=== PATIENT | male | born 1955 | race Two or more races ===

== ENCOUNTER 2020-07-08 11:27 | Emergency (ER) | payer OTHER, SELFPAY ==
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
[2020-07-08 11:39] VITALS: BP 121/82; PULSE 102; RESP 18; TEMP 37.1; O2SAT 99; BMI 25.9
--- NOTE | 2020-07-08 12:14 | PC.NURSE ---
+REDNESS/SWELLING LEFT HAND, HAND ELEVATED, AWAITING EXAM
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
--- NOTE | 2020-07-08 14:35 | PC.NURSE ---
TADEO EM CONSULTED WITH HAND SURGEON, US TO BE PERFORMED
[2020-07-08 15:05] VITALS: BP 118/73; PULSE 95; RESP 16; TEMP 36.2; O2SAT 99
--- NOTE | 2020-07-08 15:05 | PC.NURSE ---
bedside us in progress
--- NOTE | 2020-07-08 17:26 | PC.NURSE ---
PT WOUND CLEANED AND DRAINED BY DR. LEON. COMPRESSION DRESSING APPLIED.
== END 2020-07-08 17:36 | disposition home or self-care (01) ==
PROVIDERS: Emergency Provider Emergency Medicine Emergency Medical Services; PCP Internal Medicine
DX: L76.32 Postprocedural hematoma of skin and subcutaneous tissue following other procedure (principal); R00.0 Tachycardia, unspecified; E11.9 Type 2 diabetes mellitus without complications; I10 Essential (primary) hypertension; E78.5 Hyperlipidemia, unspecified
CPT/HCPCS: 10140; 76882; 99284

== ENCOUNTER 2020-07-14 08:07 | Outpatient (REF) | payer OTHER, SELFPAY ==
--- NOTE | ~2020-07-14 | US_ITS ---
EXAMINATION: US ABDOMEN COMPLETE CLINICAL INFORMATION: Elevated LFTs. COMPARISON: None TECHNIQUE: Real-time imaging of the abdominal viscera. FINDINGS: PANCREAS: The pancreas is obscured by overlying gas. ABDOMINAL AORTA: There is atherosclerotic plaque seen in the abdominal aorta without aneurysmal dilatation. INFERIOR VENA CAVA: Visualized portions are normal. LIVER: The liver is coarse and echogenic The liver is normal in size. The liver contour is normal. No focal hepatic lesion. There is no intrahepatic biliary duct dilatation seen. GALLBLADDER: Normal. The gallbladder is physiologically distended without evidence of stones, sludge, polyps, wall thickening or pericholecystic fluid. COMMON BILE DUCT: Normal in caliber measuring 0.4 cm in diameter. RIGHT KIDNEY: Normal. No hydronephrosis. No renal calculi or focal parenchymal lesions. The kidney measures 11.4 cm in maximum dimension. LEFT KIDNEY: Normal. No hydronephrosis. No renal calculi or focal parenchymal lesions. The kidney measures 11.9 cm in maximum dimension. SPLEEN: Normal. The spleen measures 10.5 cm in maximum dimension. FREE FLUID: None. US/US abdomen complete IMPRESSION: Coarse echogenic liver without any focal lesion. Rest of the abdominal ultrasound is unremarkable.
== END 2020-07-14 08:08 | disposition home or self-care (01) ==
LOC: HO.US 08:07
PROVIDERS: PCP Internal Medicine; Visit Provider Internal Medicine
DX: R74.8 Abnormal levels of other serum enzymes (principal)
CPT/HCPCS: 76700

== ENCOUNTER → 2020-08-01 08:17 | Outpatient (BNVA) | payer OTHER, SELFPAY | PROVIDERS: PCP Internal Medicine; Visit Provider Internal Medicine Gastroenterology | DX: R79.89 Other specified abnormal findings of blood chemistry (principal); R14.0 Abdominal distension (gaseous); D50.9 Iron deficiency anemia, unspecified; K21.9 Gastro-esophageal reflux disease without esophagitis; Z86.010 Personal history of colon polyps | CPT/HCPCS: 99212 ==

== ENCOUNTER 2020-08-02 10:48 | Outpatient (REF) | payer OTHER, SELFPAY ==
[2020-08-02 12:17] LABS: MANUAL DIFF FLAG NO
[2020-08-02 12:26] LABS: Basophils Absolute Auto 0.1 X10*3/uL (0.0-0.2); Basophils Percent Auto 0.7 % (0-2); Eosinophils Absolute Auto 0.2 X10*3/uL (0.0-0.4); Eosinophils Percent Auto 2.1 % (0-4); Hematocrit 34.9 % (42-52); Imm Gran Abs Auto 0.02 X10*3/uL (0.00-0.03); Imm Gran Pct Auto 0.3 % (0.0-0.4); Mean Corpuscular HGB Conc 31.5 g/dl (31.0-36.0); Mean Corpuscular Hemoglobin 27.2 pg (27.0-33.0); Mean Corpuscular Volume 86.4 fL (80-98); Mean Platelet Volume 10.8 fL (9.4-12.4); Monocytes Absolute Auto 0.6 X10*3/uL (0.1-1.2); Monocytes Percent Auto 8.2 % (2-11); Neutrophils Absolute Auto 4.8 X10*3/uL (2.0-8.3); Neutrophils Percent Auto 62.7 % (45-73); Platelet Count 323 X10*3/uL (160-400); Red Blood Count 4.04 X10*6/uL (4.60-5.80); Red Cell Distribution Width 13.2 % (11.0-16.0); White Blood Count 7.6 X10*3/uL (4.8-10.8)
[2020-08-02 12:52] LABS: Alanine Aminotransferase 23 U/L (0-40); Albumin Level 4.5 g/dL (3.5-5.0); Alkaline Phosphatase 295 U/L (39-117); Aspartate Amino Transferase 20 U/L (5-37); Bilirubin Direct 0.2 mg/dL (0.0-0.5); Bilirubin Total 0.4 mg/dL (0.0-1.0); Estimated Glomerular Filt Rate 59
[2020-08-02 13:14] LABS: Ferritin 152 ng/mL (20-250); Vitamin D 25-OH Total 34.9 ng/mL (>30)
[2020-08-03 09:02] LABS: Hepatitis A Antibody IgG REACTIVE (Nonreactive); ~Hepatitis A Antibody IgG 9.49 S/CO (0.00-0.99)
[2020-08-03 09:19] LABS: HBS Num1 0.96 mIU/mL (0-7.99); HBsAGNum1 0.33 S/CO (0.00-0.99); Hepatitis B Surface Antigen Negative (Negative); ~Hepatitis B Surface Antibody NONREACTIVE (Nonreactive)
[2020-08-03 09:50] LABS: HBc Num1 0.08 S/CO (0.00-0.79); Hepatitis B Core Antibody Nonreactive (Nonreactive); ~HepC Num1 0.11 S/CO (0.00-0.79); ~Hepatitis C Antibody Nonreactive (Nonreactive)
== END 2020-08-02 10:49 | disposition home or self-care (01) ==
LOC: HO.LAB 10:48
PROVIDERS: PCP Internal Medicine; Visit Provider Internal Medicine Gastroenterology
DX: D50.9 Iron deficiency anemia, unspecified (principal); K21.9 Gastro-esophageal reflux disease without esophagitis; R94.5 Abnormal results of liver function studies
CPT/HCPCS: 36415; 80076; 82306; 82565; 82728; 85025; 86704; 86706; 86708; 86803; 87340

== ENCOUNTER 2020-08-02 12:12 | Outpatient (REF) | payer OTHER, SELFPAY ==
[2020-08-02 12:19] LABS: OBS1 NEGATIVE (NEGATIVE); OBS2 NEGATIVE (NEGATIVE); OBS3 NEGATIVE (NEGATIVE)
[2020-08-02 12:20] LABS: OBS Int Ctl Valid YES
== END 2020-08-02 12:13 | disposition home or self-care (01) ==
LOC: HO.LNP 12:12
PROVIDERS: Visit Provider Internal Medicine Gastroenterology
DX: D50.9 Iron deficiency anemia, unspecified (principal); R94.5 Abnormal results of liver function studies
CPT/HCPCS: 82270

== ENCOUNTER → 2020-09-12 08:26 | Outpatient (BNVA) | payer OTHER, SELFPAY | PROVIDERS: PCP Internal Medicine; Referring Provider Internal Medicine; Visit Provider Internal Medicine Gastroenterology | DX: K21.9 Gastro-esophageal reflux disease without esophagitis (principal); R14.0 Abdominal distension (gaseous); D50.9 Iron deficiency anemia, unspecified; R10.12 Left upper quadrant pain; Z86.010 Personal history of colon polyps | CPT/HCPCS: 99212 ==

== ENCOUNTER 2020-09-14 06:09 | Outpatient (REF) | payer MEDICARE, SELFPAY ==
[2020-09-14 07:09] LABS: Prothrombin Time 12.4 SEC (10.8-13.0)
[2020-09-14 07:29] LABS: Blood Urea Nitrogen 21 mg/dL (9-16); Estimated Glomerular Filt Rate > 60
[2020-09-15 18:37] LABS: Prot Elec - Albumin 4.1 g/dL (3.8-4.8); Prot Elec - Alpha1 0.3 g/dL (0.2-0.3); Prot Elec - Alpha2 1.1 g/dL (0.5-0.9); Prot Elec - Beta 1 0.5 g/dL (0.4-0.6); Prot Elec - Beta 2 0.5 g/dL (0.2-0.5); Prot Elec - Gamma 1.1 g/dL (0.8-1.7); Prot Elec - Total Protein 7.6 g/dL (6.1-8.1)
[2020-09-16 14:02] LABS: ANA Pattern 2 Nuclear, Nucleolar; Anti Nuclear Antibody Pattern Nuclear, Homogeneous; Anti Nuclear Antibody Screen POSITIVE (NEGATIVE)
[2020-09-17 14:17] LABS: Myeloperoxidase Antibody <1.0 AI; Proteinase 3 PR3 Antibodies <1.0 AI
[2020-09-18 12:37] LABS: Smooth Muscle Antibody <20 U (<20)
[2020-09-18 14:37] LABS: Alk.Phos Iso. Macrohepatic 0 % (<=0); Alk.Phos Isoenzymes Bone 21 % (28-66); Alk.Phos Isoenzymes Intest 0 % (1-24); Alk.Phos Isoenzymes Liver 79 % (25-69); Alk.Phos Isoenzymes Placental 0 % (<=0); Alk.Phos Isoenzymes Total 87 U/L (35-144)
[2020-09-20 12:41] LABS: Mitochondrial Antibodies NEGATIVE (NEGATIVE)
== END 2020-09-14 06:10 | disposition home or self-care (01) ==
LOC: HO.LAB 06:09
PROVIDERS: PCP Internal Medicine; Visit Provider Internal Medicine Gastroenterology
DX: R79.89 Other specified abnormal findings of blood chemistry (principal)
CPT/HCPCS: 36415; 82565; 84080; 84155; 84165; 84520; 85610; 86021; 86038; 86039; 86255; 86256

== ENCOUNTER 2020-10-10 07:31 | Outpatient (REF) | payer MEDICARE, SELFPAY ==
--- NOTE | ~2020-10-10 | CT_ITS ---
EXAMINATION: CT ABDOMEN AND PELVIS WITH CONTRAST CLINICAL INFORMATION: Abnormal blood chemistry. COMPARISON: Ultrasound abdomen 07/14/2020. TECHNIQUE: Multidetector volumetric images were obtained from the superior aspect of the liver through the pubic symphysis following administration 85 mL of Omnipaque 350 intravenous contrast. Sagittal and coronal reformatted images were obtained on the technologist's workstation. Oral contrast: No This CT examination was performed using dose optimization techniques as appropriate, variously including the following: *Automated exposure control *Adjustment of mA and/or kV according to patient size (this includes techniques or standardized protocols for targeted exams where dose is matched to indication/reason for exam; i.e. extremities or head) *Use of iterative reconstruction technique DLP: 327 mGy-cm FINDINGS: LUNG BASES: The visualized lung bases are unremarkable. LIVER, GALLBLADDER, AND BILIARY TREE: The liver is normal in size, shape, and attenuation. No focal hepatic lesion or biliary ductal dilatation is present. The gallbladder is contracted and appears unremarkable. PANCREAS: Unremarkable. SPLEEN: Unremarkable. ADRENAL GLANDS: Unremarkable. KIDNEYS AND URETERS: The kidneys are normal in size, shape, and attenuation. No hydronephrosis, hydroureter, or calculi seen. No perinephric stranding. BLADDER: Unremarkable. GASTROINTESTINAL TRACT: There is scattered oral contrast seen throughout the entire colon and small bowel loops without distention. There is scattered stool and diverticuli throughout the colon without any evidence of diverticulitis. Appendix is normal caliber. ABDOMINAL WALL: A small umbilical hernia containing fat is noted. LYMPH NODES: Normal. VASCULAR: Unremarkable. PELVIC VISCERA: The prostate is normal size. There is no free fluid. No abnormal pelvic or inguinal lymph nodes seen. No hernia seen. OSSEOUS STRUCTURES: No lytic or sclerotic process seen. CT/CT abdomen pelvis w con IMPRESSION: Diffuse colonic diverticulosis without diverticulitis. Visualized liver, pancreas and a contracted gallbladder is unremarkable.
[2020-10-10] MEDS: iohexoL 350 MG/ML 100 ML INFUS..BTL IV (10:43)
== END 2020-10-10 07:32 | disposition home or self-care (01) ==
LOC: HO.CT 07:31
PROVIDERS: PCP Internal Medicine; Visit Provider Internal Medicine Gastroenterology
DX: R10.12 Left upper quadrant pain (principal); R79.89 Other specified abnormal findings of blood chemistry
CPT/HCPCS: 74177; Q9967

== ENCOUNTER → 2020-11-07 07:37 | Outpatient (BNVA) | payer MEDICARE, SELFPAY | PROVIDERS: PCP Internal Medicine; Visit Provider Internal Medicine Gastroenterology | DX: K21.9 Gastro-esophageal reflux disease without esophagitis (principal); D50.9 Iron deficiency anemia, unspecified; R10.12 Left upper quadrant pain; R14.0 Abdominal distension (gaseous); R79.89 Other specified abnormal findings of blood chemistry; Z86.010 Personal history of colon polyps | CPT/HCPCS: 99212 ==

== ENCOUNTER 2021-01-02 06:04 | Outpatient (REF) | payer MEDICARE, SELFPAY ==
[2021-01-02 07:37] LABS: MANUAL DIFF FLAG NO
[2021-01-02 07:47] LABS: Basophils Absolute Auto 0.1 X10*3/uL (0.0-0.2); Basophils Percent Auto 0.8 % (0-2); Eosinophils Absolute Auto 0.2 X10*3/uL (0.0-0.4); Eosinophils Percent Auto 1.7 % (0-4); Hematocrit 35.9 % (42-52); Hemoglobin 11.6 g/dl (14.0-18.0); Imm Gran Abs Auto 0.03 X10*3/uL (0.00-0.03); Imm Gran Pct Auto 0.3 % (0.0-0.4); Lymphocytes Absolute Auto 2.3 X10*3/uL (1.2-4.9); Lymphocytes Percent Auto 26.1 % (20-40); Mean Corpuscular HGB Conc 32.3 g/dl (31.0-36.0); Mean Corpuscular Hemoglobin 27.4 pg (27.0-33.0); Mean Corpuscular Volume 84.9 fL (80-98); Mean Platelet Volume 10.6 fL (9.4-12.4); Monocytes Absolute Auto 0.7 X10*3/uL (0.1-1.2); Monocytes Percent Auto 7.9 % (2-11); Neutrophils Absolute Auto 5.4 X10*3/uL (2.0-8.3); Neutrophils Percent Auto 63.2 % (45-73); Platelet Count 336 X10*3/uL (160-400); Red Blood Count 4.23 X10*6/uL (4.60-5.80); Red Cell Distribution Width 13.4 % (11.0-16.0); White Blood Count 8.6 X10*3/uL (4.8-10.8)
[2021-01-02 08:19] LABS: Alanine Aminotransferase 13 U/L (0-40); Albumin Level 4.6 g/dL (3.5-5.0); Alkaline Phosphatase 79 U/L (39-117); Aspartate Amino Transferase 13 U/L (5-37); Bilirubin Direct 0.2 mg/dL (0.0-0.5); Bilirubin Total 0.5 mg/dL (0.0-1.0); Gamma Glutamyl Transpeptidase 33 U/L (11-51); Lipase 29 U/L (8-78); Total Protein 7.8 g/dL (6.5-8.0)
[2021-01-02 10:13] LABS: Appearance Urine CLEAR; Color Urine YELLOW; Glucose Urine UA NEG (NEG); Leukocyte Esterase Urine NEG (NEG); Nitrite Urine NEG (NEG); Urine Blood NEG (NEG); Urine Ketones NEG (NEG); Urine Protein TRACE MG/DL (NEG-TRACE)
== END 2021-01-02 06:05 | disposition home or self-care (01) ==
LOC: HO.LAB 06:04
PROVIDERS: PCP Internal Medicine; Visit Provider Internal Medicine Gastroenterology
DX: R10.12 Left upper quadrant pain (principal); R79.89 Other specified abnormal findings of blood chemistry
CPT/HCPCS: 36415; 80076; 81003; 82977; 83690; 85025

== ENCOUNTER → 2021-01-09 07:37 | Outpatient (BNVA) | payer MEDICARE, SELFPAY | PROVIDERS: PCP Internal Medicine; Visit Provider Internal Medicine Gastroenterology | DX: R10.12 Left upper quadrant pain (principal); R14.0 Abdominal distension (gaseous); R79.89 Other specified abnormal findings of blood chemistry; R63.4 Abnormal weight loss; K21.9 Gastro-esophageal reflux disease without esophagitis; D50.9 Iron deficiency anemia, unspecified; Z86.010 Personal history of colon polyps | CPT/HCPCS: 99212 ==

== ENCOUNTER → 2021-01-26 10:07 | Outpatient (BNVA) | payer MEDICARE, SELFPAY | PROVIDERS: PCP Internal Medicine; Visit Provider Urology | DX: N41.1 Chronic prostatitis (principal); G89.4 Chronic pain syndrome | CPT/HCPCS: 99202 ==

== ENCOUNTER → 2021-03-02 10:07 | Outpatient (BNVA) | payer MEDICARE, SELFPAY | PROVIDERS: PCP Internal Medicine; Visit Provider Urology | DX: N41.1 Chronic prostatitis (principal); G89.4 Chronic pain syndrome | CPT/HCPCS: 99212 ==

== ENCOUNTER → 2021-03-03 08:07 | Outpatient (REF) | payer MEDICARE, SELFPAY ==
--- NOTE | ~2021-03-03 | NM_ITS ---
EXAMINATION: RADIONUCLIDE SOLID FOOD GASTRIC EMPTYING 4-HOUR STUDY CLINICAL INFORMATION: Abnormal weight loss. COMPARISON: No previous gastric emptying study is available for comparison. TECHNIQUE: A standard meal consisting of 4 oz of Egg Beaters brand tagged with 1 mCi Tc-99m Sulfur Colloid, 8 oz water and 2 slices of toast with jelly was administered orally to the patient. Images were obtained using a dual head gamma camera in the anterior and posterior projections over of the stomach immediately post ingestion and at hourly intervals up to 3 hours post ingestion. Images were not obtained at 4 hours due to the minimal retention at 3 hours. The anterior and posterior counts at each time interval were averaged using the geometric mean and expressed as percentage of the immediate post ingestion counts. FINDINGS: There is good visualization of activity in the stomach immediately post ingestion. As the study progresses, there is good clearance of activity from the stomach and visualization of progressively increasing small bowel activity. By the end of the study, there is almost no retention noted in the stomach. Retention in the stomach at each time interval was: 1 hour 68% (normal 37%-90%) 2 hours 16% (normal 30%-60%) 3 hours 5% 4 hours (Not Obtained) (normal 0%-10%) NM/NM gastric emptying study IMPRESSION: Normal solid food gastric emptying study.
== END ==
LOC: HO.NUCMED 08:07
PROVIDERS: Visit Provider Neurological Surgery
DX: R63.4 Abnormal weight loss (principal)
CPT/HCPCS: 78264; A9541

== ENCOUNTER → 2021-03-20 09:28 | Outpatient (BNVA) | payer MEDICARE, SELFPAY | PROVIDERS: PCP Internal Medicine; Referring Provider Internal Medicine; Visit Provider Internal Medicine Gastroenterology | DX: K21.9 Gastro-esophageal reflux disease without esophagitis (principal); R63.4 Abnormal weight loss; R10.12 Left upper quadrant pain; R14.0 Abdominal distension (gaseous); R79.89 Other specified abnormal findings of blood chemistry; D50.9 Iron deficiency anemia, unspecified; Z86.010 Personal history of colon polyps | CPT/HCPCS: 99212 ==

== ENCOUNTER 2021-05-27 07:56 | Outpatient (REF) | payer MEDICARE, SELFPAY ==
[2021-05-27 08:25] LABS: MANUAL DIFF FLAG NO
[2021-05-27 09:08] LABS: Basophils Absolute Auto 0.1 X10*3/uL (0.0-0.2); Basophils Percent Auto 0.8 % (0-2); Eosinophils Absolute Auto 0.2 X10*3/uL (0.0-0.4); Eosinophils Percent Auto 2.3 % (0-4); Hematocrit 33.7 % (42.0-52.0); Hemoglobin 10.8 g/dl (14.0-18.0); Imm Gran Abs Auto 0.01 X10*3/uL (0.00-0.03); Imm Gran Pct Auto 0.1 % (0.0-0.4); Lymphocytes Absolute Auto 1.8 X10*3/uL (1.2-4.9); Lymphocytes Percent Auto 24.1 % (20-40); Mean Corpuscular Volume 84.3 fL (80.0-98.0); Mean Platelet Volume 10.1 fL (9.4-12.4); Monocytes Absolute Auto 0.5 X10*3/uL (0.1-1.2); Monocytes Percent Auto 6.6 % (2-11); Neutrophils Absolute Auto 4.8 x10*3/uL (2.0-8.3); Neutrophils Percent Auto 66.1 % (45-73); Platelet Count 294 X10*3/uL (160-400); Red Cell Distribution Width 13.2 % (11.0-16.0); White Blood Count 7.3 X10*3/uL (4.8-10.8)
[2021-05-27 09:32] LABS: Alkaline Phosphatase 76 U/L (39-117)
[2021-05-27 09:54] LABS: Ferritin 116 ng/mL (20-250)
== END 2021-05-27 07:57 | disposition home or self-care (01) ==
LOC: HO.LAB 07:56
PROVIDERS: Absent Provider Urology; PCP Internal Medicine; Visit Provider Internal Medicine Gastroenterology
DX: D50.9 Iron deficiency anemia, unspecified (principal); R79.89 Other specified abnormal findings of blood chemistry
CPT/HCPCS: 36415; 82728; 84075; 85025

== ENCOUNTER → 2021-05-29 10:16 | Outpatient (BNVA) | payer MEDICARE, SELFPAY | PROVIDERS: PCP Internal Medicine; Referring Provider Internal Medicine; Visit Provider Internal Medicine Gastroenterology | DX: K21.9 Gastro-esophageal reflux disease without esophagitis (principal); R63.4 Abnormal weight loss; R10.12 Left upper quadrant pain; R14.0 Abdominal distension (gaseous); R79.89 Other specified abnormal findings of blood chemistry; D50.9 Iron deficiency anemia, unspecified; Z86.010 Personal history of colon polyps | CPT/HCPCS: 99212 ==

== ENCOUNTER 2021-07-24 10:20 | Day surgery (SDC) | payer OTHER, SELFPAY ==
[2021-07-20 16:24] VITALS: BMI 23.1
--- NOTE | 2021-07-21 13:24 | P.CONAN_ITS ---
Documented by User: Allie Denis NP 07/21/21 13:26 HPI - Anesthesia Eval Consult details Narrative: 66yo M for Upper Endoscopy and Colonoscopy [facility] Active Problems Active Problems: All Active Problems (Updated 05/29/21 @ 11:37 by Tyler Pena MD) Chronic prostatitis/chronic pelvic pain syndrome (Acute) Weight loss (Acute) LUQ abdominal pain (Acute) GERD (gastroesophageal reflux disease) (Acute) Abdominal bloating (Acute) Iron deficiency anemia (Acute) History of colon polyps (Acute) HTN (hypertension) (Acute) High cholesterol (Acute) Diabetes (Acute) Past Medical History Medical History Diabetes Elevated LFTs High cholesterol HTN (hypertension) Family History Family History Mother Diabetes History of heart surgery Father Diabetes History of heart surgery Surgical History Surgical History Cataract Hx of colonoscopy Social History Social History Household Members: Spouse and Children Alcohol intake: current Alcohol intake frequency: holidays/special occasions only Advance Directives: No Advance Directives Information Provided: Yes Current occupational status: retired [employer] Allergies Allergy/AdvReac Type Severity Reaction Status Date / Time No Known Allergies Allergy Verified 05/29/21 10:26 Home Medications Medication Instructions Recorded Confirmed Last Taken Type amlodipine 10 mg tablet 10 mg PO DAILY 08/01/20 05/29/21 Unknown History aspirin 81 mg tablet,delayed 81 mg PO DAILY 08/01/20 05/29/21 Unknown History release atorvastatin 40 mg tablet 40 mg PO BEDTIME 08/01/20 05/29/21 Unknown History cilostazol 50 mg tablet 50 mg PO BEDTIME 08/01/20 05/29/21 Unknown History dulaglutide 0.75 mg/0.5 mL 0.75 mg SUBCUT QWEEK 08/01/20 05/29/21 Unknown History subcutaneous pen injector gabapentin 600 mg tablet 600 mg PO BEDTIME 08/01/20 05/29/21 Unknown History gabapentin 600 mg tablet 600 mg PO DAILY 08/01/20 05/29/21 Unknown History hydrochlorothiazide 25 mg tablet 25 mg PO DAILY 08/01/20 05/29/21 Unknown History losartan 100 mg tablet 100 mg PO DAILY 08/01/20 05/29/21 Unknown History metformin 1,000 mg tablet 1,000 mg PO BID 08/01/20 05/29/21 Unknown History Exam Exam Date and Time: July 21, 2021 1324 Height,Weight and Vital Signs: Height 5 ft 8 in Weight 68.946 kg Pertinent Lab Results Pertinent Lab Results: Laboratory Tests 05/27/21 08:20 WBC 7.3 Hgb 10.8 L Hct 33.7 L Plt Count 294 Assessment and Plan Assessment Anesthesia Assessment: Chart Reviewed Documented by User: lSime Hill MD 07/24/21 10:50 PMFSH Past Medical History Medical History Diabetes Elevated LFTs High cholesterol HTN (hypertension) Family History Family History Mother Diabetes History of heart surgery Father Diabetes History of heart surgery Surgical History Surgical History Cataract Hx of colonoscopy History of Problems with Anesthesia: No Social History Social History Household Members: Spouse and Children Alcohol intake: current Alcohol intake frequency: holidays/special occasions only Advance Directives: No Advance Directives Information Provided: Yes Current occupational status: [employer] Allergies Allergy/AdvReac Type Severity Reaction Status Date / Time No Known Allergies Allergy Verified 05/29/21 10:26 Home Medications Medication Instructions Recorded Confirmed Last Taken Type amlodipine 10 mg tablet 10 mg PO DAILY 08/01/20 05/29/21 Unknown History aspirin 81 mg tablet,delayed 81 mg PO DAILY 08/01/20 05/29/21 Unknown History release atorvastatin 40 mg tablet 40 mg PO BEDTIME 08/01/20 05/29/21 Unknown History cilostazol 50 mg tablet 50 mg PO BEDTIME 08/01/20 05/29/21 Unknown History dulaglutide 0.75 mg/0.5 mL 0.75 mg SUBCUT QWEEK 08/01/20 05/29/21 Unknown History subcutaneous pen injector gabapentin 600 mg tablet 600 mg PO BEDTIME 08/01/20 05/29/21 Unknown History gabapentin 600 mg tablet 600 mg PO DAILY 08/01/20 05/29/21 Unknown History hydrochlorothiazide 25 mg tablet 25 mg PO DAILY 08/01/20 05/29/21 Unknown History losartan 100 mg tablet 100 mg PO DAILY 08/01/20 05/29/21 Unknown History metformin 1,000 mg tablet 1,000 mg PO BID 08/01/20 05/29/21 Unknown History Exam Airway Mallampati Class: II TM Dist: >3cm Neck ROM: Full Loose/Missing/Broken Teeth: No Heart: RRR Lungs: CTA Assessment and Plan Assessment Anesthesia Assessment: Anesthesia Plan Discussed Final Anesthetic Review History of Problems with Anesthesia: No NPO: Yes ASA Class: II Final Preanesthetic Review: Meds/Allgs Chart Reviewed, Consent Obtained/Reviewed and Anes Risks/Benef Reviewed Patient Risk: Low Procedure Risk: Intermediate Anesthetic Plan Anesthetic Plan: MAC: Disposition: Standard PACU
[2021-07-24 10:41] LABS: Glucose, Whole Blood 93 mg/dL (60-115)
--- NOTE | 2021-07-24 10:49 | MHC.SHP ---
Pre-Procedural Eval Section A Date of Service: 07/24/21 The patient is an INPATIENT: No The History & Physical has been completed within 30 days and I have reviewed it.: No Section B Chief Complaint: hx of colonic polyps,reflux disease Relevant Family History (Specify if Yes): No Relevant Social History: None Present Medications: see Short Stay Collaborative assessment Medical History: Significant History (Diabetes Elevated LFTs High cholesterol HTN (hypertension)) History of Previous Operations: Relevant previous surgery/procedure and date(s) (Cataract, Hx of EGD and colonoscopy) Allergies: Allergies Allergy/AdvReac Type Severity Reaction Status Date / Time No Known Allergies Allergy Verified 05/29/21 10:26 Review of Systems Sugical H&P ROS: Negative: Constitution, Cardiovascular and Respiratory and Yes, Specify: Gastrointestinal (wt loss) Exam Surgical H&P Exam: Normal: Heart, Normal: Lungs, Normal: Extremities and Normal: Abdomen Plan Diagnosis/Plan: Unchanged I have reviewed the history and physical and performed a pertinent physical examination on my patient. No changes have occurred unless specified.
--- NOTE | 2021-07-24 10:52 | P.BOP_ITS ---
Brief Operative Note Date of Service: 07/24/21 Pre-op diagnosis: ASHLEIGH, chronic constipation, hx of wt loss Post-op diagnosis: other (Gastritis, gastric polyps, duodenal fold/polyp, colon polyps, diverticulosis, hemorrhoids) Procedure: FLEXIBLE TRANSORAL UPPER GASTROINTESTINAL ENDOSCOPY AND SMALL BOWEL ENTEROSCOPY WITH BIOPSIES AND SUBMUCOSAL INJECTION AND COLONOSCOPY TILL CECUM WITH SNARE POLYPECTOMY UPPER ENDOSCOPY Consent: Indications for the procedure and potential complications of bleeding, perforation, reaction to medications and missed diagnosis were discussed with the patient and informed consent was obtained. Instrument: Olympus GIF H 190 mid size upper endoscope Monitoring: Vital signs and clinical assessment, continuous EKG monitoring, Pulse oximetry, Carbon Dioxide monitoring and blood pressure monitoring were done throughout the procedure. Procedure: The patient was placed in the left lateral decubitis position and pre-procedure medications were administered and a bite block was placed. The endoscope was inserted into the mouth and advanced under direct vision to the third part of duodenum. A careful inspection was made as the upper endoscope was withdrawn including a retroflexed examination of the proximal stomach; Mid size upper endoscope was removed, a pediatric colonoscope was then advanced through the mouth to the hilt of the colonoscope till the proximal Jejunum. A careful inspection was made as the colonoscope was withdrawn Findings and interventions are described below. Findings: Larynx: Normal Esophagus: GE junction at 40 cms. A non-obstructing Schatzki's ring at GE junction. No esophagitis or Deras's. Stomach: A 4-5 mm benign appearing polyp in the gastric body - biopsied. Mild gastric erythema. Biopsies were obtained. Grade 2 flap valve on retroflexed examination of the cardia. Duodenum: Normal bulb and descending duodenum Jejunum: A 2 cms linear fold versus polyp at 70 cms - biopsied and site marked by eliza ink Intervention: Biopsies as noted above COLONOSCOPY PROCEDURE NOTE Consent: Indications for the procedure and potential complications of bleeding, perforation, reaction to medications and missed diagnosis were discussed with the patient and informed consent was obtained. Instrument: Olympus PCF H 190 L variable stiffness pediatric colonoscope Monitoring: Vital signs and clinical assessment, intermittent blood pressure monitoring, continuous EKG monitoring, Pulse oximetry and Carbon Dioxide monitoring were done throughout the procedure. Colon withdrawl time was 15 minutes. Procedure: The patient was placed in the left lateral decubitis position and pre-procedure medications were administered. After a digital rectal examination of the ano-rectum, the video colonoscope was inserted into the rectum and advanced through the colon to the cecum. The colonoscope was slowly withdrawn in a retrograde panoramic fashion and the colon mucosa was carefully examined including a retroflexed view of the rectum. Findings and interventions are described below. Procedure Difficulty: : Without difficulty Findings: Terminal Ileum: Not evaluated Cecum: Not visualized due to poor prep Ascending Colon: A 12-15 mm sessile polyp in the proximal ascending colon - removed with a hot snare Scattered moderate diverticulosis throughout the colon Transverse Colon: Scattered moderate diverticulosis throughout the colon Descending Colon: Scattered moderate diverticulosis throughout the colon Sigmoid Colon: A 12-15 mm sessile polyp removed with a hot snare. Severe diverticulosis Rectum: Normal Ano-rectum: Moderate internal hemorrhoids Colon preparation: Good after some irrigation and fair to poor in the cecum and right colon Impression and Post Procedure Diagnosis: Endoscopy Findings: ESOPHAGUS: GE junction at 40 cms. A non-obstructing Schatzki's ring at GE junction. No esophagitis or Deras's. STOMACH: A 4-5 mm benign appearing polyp in the gastric body - biopsied. Mild gastric erythema. Biopsies were obtained. JEJUNUM: A 2 cms linear fold versus polyp at 70 cms - biopsied and site marked by eliza ink Colonoscopy Findings: Two medium sized polyps removed Moderate diverticulosis seen in the entire colon Moderate hemorrhoids on retroflexed exam. Plan: Await pathology results Patient has an appointment on 08/31/21 in the [facility] with Tyler Pena M.D. Repeat Colonoscopy interval based on path results - in 3 years if polyps are adenomatous and 10 years if polyps are hyperplastic. Above findings were reviewed with the patient and Gastric polyps, colon polyps and diverticulosis handouts were given in the discharge area Surgeon: Tyler Pena MD Anesthesia: MAC (Dr Hill) Was an Logistics Associate used for this Procedure?: Yes Logistics Associate: Melissa Oconnor Estimated blood loss (mL): 0 Pathology: other (A. gastric antrum bxs, R/O H. pylori B. gastric polyp C. fold at 70 cm D. ascending colon polyp E. sigmoid polyp) Condition: stable Disposition: PACU
--- NOTE | 2021-07-24 10:56 | P.OP_ITS ---
Operative Note Operative Note Date of Service: 07/24/21 Narrative: Pre-op diagnosis: ASHLEIGH, chronic constipation, hx of wt loss Post-op diagnosis:?other (Gastritis, gastric polyps, duodenal fold/polyp, colon polyps, diverticulosis, hemorrhoids) Procedure: FLEXIBLE TRANSORAL UPPER GASTROINTESTINAL ENDOSCOPY AND SMALL BOWEL ENTEROSCOPY WITH BIOPSIES AND SUBMUCOSAL INJECTION AND COLONOSCOPY TILL CECUM WITH SNARE POLYPECTOMY UPPER ENDOSCOPY Consent:?Indications for the procedure and potential complications of bleeding, perforation, reaction to medications and missed diagnosis were discussed with the patient and informed consent was obtained. Instrument:?Olympus GIF H 190 mid size upper endoscope Monitoring: Vital signs and clinical assessment, continuous EKG monitoring, Pulse oximetry, Carbon Dioxide monitoring and blood pressure monitoring were done throughout the procedure. Procedure:?The patient was placed in the left lateral decubitis position and pre-procedure medications were administered and a bite block was placed. The endoscope was inserted into the mouth and advanced under direct vision to the third part of duodenum. A careful inspection was made as the upper endoscope was withdrawn including a retroflexed examination of the proximal stomach; Mid size upper endoscope was removed, a pediatric colonoscope was then advanced through the mouth to the hilt of the colonoscope till the proximal Jejunum. A careful inspection was made as the colonoscope was withdrawn Findings and interventions are described below. Findings: Larynx:? Normal Esophagus:?GE junction at 40 cms.? A non-obstructing Schatzki's ring at GE junction. No esophagitis or Deras's. Stomach:?A 4-5 mm benign appearing polyp in the gastric body - biopsied. Mild gastric erythema. Biopsies were obtained. Grade 2 flap valve on retroflexed examination of the cardia. Duodenum:?Normal bulb and descending duodenum Jejunum:??A 2 cms linear fold versus polyp at 70 cms - biopsied and site marked by eliza ink Intervention:?Biopsies as noted above COLONOSCOPY PROCEDURE NOTE Consent:?Indications for the procedure and potential complications of bleeding, perforation, reaction to medications and missed diagnosis were discussed with the patient and informed consent was obtained. Instrument:?Olympus PCF H 190 L variable stiffness pediatric colonoscope Monitoring:?Vital signs and clinical assessment, intermittent blood pressure monitoring, continuous EKG monitoring, Pulse oximetry and Carbon Dioxide monitoring were done throughout the procedure. Colon withdrawl time was 15 minutes. Procedure:?The patient was placed in the left lateral decubitis position and pre-procedure medications were administered. After a digital rectal examination of the ano-rectum, the video colonoscope was inserted into the rectum and advanced through the colon to the cecum. The colonoscope was slowly withdrawn in a retrograde panoramic fashion and the colon mucosa was carefully examined including a retroflexed view of the rectum. Findings and interventions are described below. Procedure Difficulty:?: Without difficulty Findings: Terminal Ileum: Not evaluated Cecum:? Not visualized due to poor prep Ascending Colon:??A 12-15 mm sessile polyp in the proximal ascending colon - removed with a hot snare Scattered moderate diverticulosis throughout the colon Transverse Colon:??Scattered moderate diverticulosis throughout the colon Descending Colon:? Scattered moderate diverticulosis throughout the colon Sigmoid Colon:??A 12-15 mm sessile polyp removed with a hot snare. ?Severe diverticulosis Rectum:??Normal Ano-rectum:??Moderate internal hemorrhoids Colon preparation:? Good after some irrigation and fair to poor in the cecum and right colon Impression and Post Procedure Diagnosis: Endoscopy Findings: ESOPHAGUS: GE junction at 40 cms.? A non-obstructing Schatzki's ring at GE junction. No esophagitis or Deras's. STOMACH: A 4-5 mm benign appearing polyp in the gastric body - biopsied. Mild gastric erythema. Biopsies were obtained. JEJUNUM: A 2 cms linear fold versus polyp at 70 cms - biopsied and site marked by eliza ink Colonoscopy Findings: Two medium sized polyps removed Moderate diverticulosis seen in the entire colon Moderate hemorrhoids on retroflexed exam. Plan: Await pathology results Patient has an appointment on 08/31/21 in the GI Clinic with Tyler Pena M.D. Repeat Colonoscopy interval based on path results - in 3 years if polyps are adenomatous and 10 years if polyps are hyperplastic. Above findings were reviewed with the patient and Gastric polyps, colon polyps and diverticulosis handouts were given in the discharge area Surgeon: Tyler Pena MD Anesthesia:?MAC (Dr Hill) Was an Print Support Specialist used for this Procedure?:?Yes Print Support Specialist:?Melissa Oconnor Estimated blood loss (mL):?0 Pathology:?other (A. gastric antrum bxs, R/O H. pylori? B. gastric polyp? C. fold at 70 cm? D. ascending colon polyp? E. sigmoid polyp) Condition:?stable Disposition:?PACU
[2021-07-24 10:58] VITALS: BP 139/82; PULSE 94; RESP 18; TEMP 36.4; O2SAT 98
[2021-07-24] MEDS: Lactated Ringers 1,000 ML 100 ML IVCONT (11:00)
[2021-07-24 13:47] VITALS: BP 100/61; PULSE 91; RESP 18; TEMP 37.2; O2SAT 100
[2021-07-24 14:05] VITALS: BP 135/84; PULSE 86; RESP 18; TEMP 36.7; O2SAT 100
== END 2021-07-24 15:09 | disposition home or self-care (01) ==
PROVIDERS: PCP Internal Medicine; Visit Provider Internal Medicine Gastroenterology
PROC: (CPT 45385; principal; 2021-07-24 13:40)
DX: D50.9 Iron deficiency anemia, unspecified (principal); K59.04 Chronic idiopathic constipation; R63.4 Abnormal weight loss; Z68.23 Body mass index [BMI] 23.0-23.9, adult; Z86.010 Personal history of colon polyps; D12.2 Benign neoplasm of ascending colon; D12.5 Benign neoplasm of sigmoid colon; K57.30 Diverticulosis of large intestine without perforation or abscess without bleeding; K64.8 Other hemorrhoids; R14.0 Abdominal distension (gaseous); K21.9 Gastro-esophageal reflux disease without esophagitis; K22.2 Esophageal obstruction; K29.50 Unspecified chronic gastritis without bleeding; K31.7 Polyp of stomach and duodenum; K63.89 Other specified diseases of intestine; R79.89 Other specified abnormal findings of blood chemistry; I10 Essential (primary) hypertension; I73.9 Peripheral vascular disease, unspecified; E78.00 Pure hypercholesterolemia, unspecified; E11.9 Type 2 diabetes mellitus without complications; Z79.84 Long term (current) use of oral hypoglycemic drugs; Z79.82 Long term (current) use of aspirin; Z79.899 Other long term (current) drug therapy
CPT/HCPCS: 45385; 43239; 43236; 82947; 88305; 88342

== ENCOUNTER → 2021-08-31 09:43 | Outpatient (BNVA) | payer OTHER, SELFPAY | PROVIDERS: PCP Internal Medicine; Referring Provider Internal Medicine; Visit Provider Internal Medicine Gastroenterology | DX: R10.12 Left upper quadrant pain (principal); R14.0 Abdominal distension (gaseous); D50.9 Iron deficiency anemia, unspecified; K21.9 Gastro-esophageal reflux disease without esophagitis; R63.4 Abnormal weight loss; Z86.010 Personal history of colon polyps | CPT/HCPCS: 99212 ==

== ENCOUNTER 2021-09-22 07:38 | Outpatient (REF) | payer OTHER, SELFPAY ==
[2021-09-22 07:54] LABS: MANUAL DIFF FLAG NO
[2021-09-22 08:06] LABS: Basophils Absolute Auto 0.1 X10*3/uL (0.0-0.2); Basophils Percent Auto 0.7 % (0-2); Eosinophils Absolute Auto 0.2 X10*3/uL (0.0-0.4); Hematocrit 34.4 % (42.0-52.0); Hemoglobin 11.1 g/dl (14.0-18.0); Imm Gran Abs Auto 0.02 X10*3/uL (0.00-0.03); Imm Gran Pct Auto 0.2 % (0.0-0.4); Lymphocytes Percent Auto 23.2 % (20-40); Mean Corpuscular HGB Conc 32.3 g/dl (31.0-36.0); Mean Corpuscular Hemoglobin 27.7 pg (27.0-33.0); Mean Corpuscular Volume 85.8 fL (80.0-98.0); Mean Platelet Volume 9.8 fL (9.4-12.4); Monocytes Absolute Auto 0.6 X10*3/uL (0.1-1.2); Monocytes Percent Auto 7.3 % (2-11); Neutrophils Absolute Auto 5.6 x10*3/uL (2.0-8.3); Neutrophils Percent Auto 66.6 % (45-73); Platelet Count 310 X10*3/uL (160-400); Red Blood Count 4.01 X10*6/uL (4.60-5.80); Red Cell Distribution Width 13.7 % (11.0-16.0); White Blood Count 8.4 X10*3/uL (4.8-10.8)
[2021-09-22 08:29] LABS: C Reactive Protein 0.35 mg/dL (< or = 0.50)
[2021-09-22 08:53] LABS: Prostate Specific Antigen 0.31 ng/mL (<0.05-4.0)
== END 2021-09-22 07:39 | disposition home or self-care (01) ==
LOC: HO.LAB 07:38
PROVIDERS: Absent Provider Urology; PCP Internal Medicine; Visit Provider Internal Medicine Gastroenterology
DX: D50.9 Iron deficiency anemia, unspecified (principal); R63.4 Abnormal weight loss; N40.1 Benign prostatic hyperplasia with lower urinary tract symptoms; N13.8 Other obstructive and reflux uropathy; Z12.5 Encounter for screening for malignant neoplasm of prostate
CPT/HCPCS: 36415; 84153; 85025; 86140

== ENCOUNTER → 2021-10-04 07:54 | Outpatient (BNVA) | payer OTHER, SELFPAY | PROVIDERS: PCP Internal Medicine; Visit Provider Orthopaedic Surgery | DX: M65.332 Trigger finger, left middle finger (principal); M65.331 Trigger finger, right middle finger; M25.641 Stiffness of right hand, not elsewhere classified; M25.642 Stiffness of left hand, not elsewhere classified; G56.02 Carpal tunnel syndrome, left upper limb | CPT/HCPCS: 99202 ==

== ENCOUNTER → 2021-10-10 09:27 | Outpatient (BNVA) | payer OTHER, SELFPAY | PROVIDERS: PCP Internal Medicine; Visit Provider Urology | DX: N41.1 Chronic prostatitis (principal); G89.29 Other chronic pain; R10.2 Pelvic and perineal pain; E11.69 Type 2 diabetes mellitus with other specified complication; N52.1 Erectile dysfunction due to diseases classified elsewhere; R79.89 Other specified abnormal findings of blood chemistry; Z79.4 Long term (current) use of insulin; Z79.52 Long term (current) use of systemic steroids | CPT/HCPCS: 99212 ==

== ENCOUNTER 2021-10-26 11:21 | Day surgery (SDC) | payer OTHER, SELFPAY ==
[2021-10-26 12:22] VITALS: BMI 22.5
[2021-10-26 12:23] VITALS: BP 119/76; PULSE 98; RESP 18; TEMP 36.6; O2SAT 96
--- NOTE | 2021-10-26 13:33 | MHC.SHP ---
Pre-Procedural Eval Section A Date of Service: 10/26/21 The patient is an INPATIENT: No Changes since office visit: No Cold of Flu in the past 2 weeks, No New Medical Problems, No Changes in Medication and No Patient answered all questions The History & Physical has been completed within 30 days and I have reviewed it.: Yes Section B Chief Complaint: trigger finger Allergies: Allergies Allergy/AdvReac Type Severity Reaction Status Date / Time No Known Allergies Allergy Verified 10/26/21 12:33 Plan I have reviewed the history and physical and performed a pertinent physical examination on my patient. No changes have occurred unless specified.
--- NOTE | 2021-10-26 13:34 | W.PM.OPN ---
Operative Note Operative Note Date of Service: 10/26/21 Narrative: Operative Note Preop diagnosis: 1. 1. Left middle finger Trigger finger Postop diagnosis: 1. 1. Left middle finger Trigger finger Procedure: 1. 1. Left middle finger A1 naomi release Surgeon: Lauryn Wild MD Anesthesia: local block using 1% lidocaine with epinephrine Findings: No locking or catching after A1 naomi release EBL: Less than 5 mL Tourniquet time: None Specimens: None Complications: None Disposition: Brought to recovery room in stable condition Plan: Follow-up for 10-14 days for wound check and suture removal Indications: The patient is 66 years old, with a left middle finger trigger finger that has been unresponsive to nonoperative management. The risks and benefits of operative treatment including but not limited to risk of damage to blood vessels, nerves, tendons, infection, persistent pain, persistent symptoms, recurrence or possible need for additional surgery were discussed with the patient and the patient wishes to proceed with surgery. Procedure: Once consent was obtained a local block was performed in the preop area using a combination of 1% lidocaine with epinephrine. The patient was then brought back to the operating suite and placed on the operative table in supine position. A tourniquet was applied to the proximal aspect of the left upper extremity and the limb was prepped and draped in a standard surgical fashion. Once assured that we had a good block, a 1.5 cm oblique incision was made centered over the A1 naomi of the left middle finger . The incision was made through the skin to the subcutaneous tissues using a #15 blade. Careful dissection was made down to the level of the A1 naomi using tenotomy scissors, with care being taken to protect the nearby neurovascular structures. A longitudinal incision was made in the A1 naomi 1st using a #15 blade, then using tenotomy scissors under direct visualization. The A1 naomi was noted to be thickened. Following our A1 naomi release, we no longer saw any locking or catching of the digit with flexion and extension. Once satisfied with our A1 naomi release the wound was copiously irrigated with normal saline and hemostasis was obtained with a brief period of local pressure. The skin edges were reapproximated with some 5.0 nylon suture material and a sterile dressing was applied. The patient appears to have tolerated the procedure well and with no complications. All digits were well vascularized at the conclusion of the case.
--- NOTE | 2021-10-26 14:57 | PC.NURSE ---
VITAL SIGNS POST OP: BP 139/70, P 93, RESP 14, PULSE OX: 99%
== END 2021-10-26 14:58 | disposition home or self-care (01) ==
PROVIDERS: PCP Internal Medicine; Visit Provider Orthopaedic Surgery
PROC: (CPT 26055; principal; 2021-10-26 13:20)
DX: M65.332 Trigger finger, left middle finger (principal); M25.642 Stiffness of left hand, not elsewhere classified; E11.9 Type 2 diabetes mellitus without complications; I10 Essential (primary) hypertension; R79.89 Other specified abnormal findings of blood chemistry; Z79.82 Long term (current) use of aspirin
CPT/HCPCS: 26055; J0171

== ENCOUNTER → 2021-11-10 09:37 | Outpatient (BNVA) | payer OTHER, SELFPAY | PROVIDERS: PCP Internal Medicine; Visit Provider Orthopaedic Surgery | DX: M25.641 Stiffness of right hand, not elsewhere classified (principal); M25.642 Stiffness of left hand, not elsewhere classified; M65.331 Trigger finger, right middle finger; M65.332 Trigger finger, left middle finger; G56.02 Carpal tunnel syndrome, left upper limb | CPT/HCPCS: 99212 ==

== ENCOUNTER 2021-12-14 09:02 | Outpatient (REF) | payer OTHER, SELFPAY ==
--- NOTE | 2021-12-14 09:32 | MHC.SHP ---
Pre-Procedural Eval Section A Date of Service: 12/14/21 The patient is an INPATIENT: No Changes since office visit: No Cold of Flu in the past 2 weeks, No New Medical Problems, No Changes in Medication and No Patient answered all questions The History & Physical has been completed within 30 days and I have reviewed it.: Yes Section B Chief Complaint: Trigger finger, right middle finger Allergies: Allergies Allergy/AdvReac Type Severity Reaction Status Date / Time No Known Allergies Allergy Verified 12/13/21 08:14 Plan I have reviewed the history and physical and performed a pertinent physical examination on my patient. No changes have occurred unless specified.
--- NOTE | 2021-12-14 09:32 | W.PM.OPN ---
Operative Note Operative Note Date of Service: 12/14/21 Narrative: Operative Note Preop diagnosis: 1. right middle finger Trigger finger Postop diagnosis: 1. right middle finger Trigger finger Procedure: 1. right middle finger A1 naomi release Surgeon: Lauryn Wild MD Anesthesia: local block using 1% lidocaine with epinephrine Findings: No locking or catching after A1 naomi release EBL: Less than 5 mL Tourniquet time: None Specimens: None Complications: None Disposition: Brought to recovery room in stable condition Plan: Follow-up for 10-14 days for wound check and suture removal Indications: The patient is 66 years old, with a right middle finger trigger finger that has been unresponsive to nonoperative management. The risks and benefits of operative treatment including but not limited to risk of damage to blood vessels, nerves, tendons, infection, persistent pain, persistent symptoms, recurrence or possible need for additional surgery were discussed with the patient and the patient wishes to proceed with surgery. Procedure: Once consent was obtained a local block was performed in the preop area using a combination of 1% lidocaine with epinephrine. The patient was then brought back to the operating suite and placed on the operative table in supine position. A tourniquet was applied to the proximal aspect of the right upper extremity and the limb was prepped and draped in a standard surgical fashion. Once assured that we had a good block, a 1.5 cm oblique incision was made centered over the A1 naomi of the right middle finger . The incision was made through the skin to the subcutaneous tissues using a #15 blade. Careful dissection was made down to the level of the A1 naomi using tenotomy scissors, with care being taken to protect the nearby neurovascular structures. A longitudinal incision was made in the A1 naomi 1st using a #15 blade, then using tenotomy scissors under direct visualization. The A1 naomi was noted to be thickened. Following our A1 naomi release, we no longer saw any locking or catching of the digit with flexion and extension. Once satisfied with our A1 naomi release the wound was copiously irrigated with normal saline and hemostasis was obtained with a brief period of local pressure. The skin edges were reapproximated with some 5.0 nylon suture material and a sterile dressing was applied. The patient appears to have tolerated the procedure well and with no complications. All digits were well vascularized at the conclusion of the case.
== END 2021-12-14 09:03 | disposition home or self-care (01) ==
LOC: HO.MS 09:02
PROVIDERS: Visit Provider Orthopaedic Surgery
PROC: (CPT 26055; principal; 2021-12-14 09:10)
DX: M65.331 Trigger finger, right middle finger (principal); M25.641 Stiffness of right hand, not elsewhere classified; I10 Essential (primary) hypertension; E11.9 Type 2 diabetes mellitus without complications; R79.89 Other specified abnormal findings of blood chemistry; E78.00 Pure hypercholesterolemia, unspecified; Z79.82 Long term (current) use of aspirin
CPT/HCPCS: 26055; J0171

== ENCOUNTER 2021-12-22 11:16 | Outpatient (REF) | payer OTHER, SELFPAY | END 2021-12-22 11:17 | disposition home or self-care (01) | LOC: HO.MRI 11:16 | PROVIDERS: PCP Internal Medicine; Visit Provider Internal Medicine | DX: Z13.89 Encounter for screening for other disorder (principal) ==

== ENCOUNTER → 2022-01-04 12:27 | Outpatient (BNVA) | payer OTHER, SELFPAY | PROVIDERS: PCP Internal Medicine; Referring Provider Internal Medicine; Visit Provider Internal Medicine Gastroenterology | DX: D50.9 Iron deficiency anemia, unspecified (principal); R14.0 Abdominal distension (gaseous); K21.9 Gastro-esophageal reflux disease without esophagitis; R10.12 Left upper quadrant pain; R63.4 Abnormal weight loss; Z86.010 Personal history of colon polyps | CPT/HCPCS: 99212 ==

== ENCOUNTER → 2022-04-05 11:40 | Outpatient (BNVA) | payer OTHER, SELFPAY | PROVIDERS: PCP Internal Medicine; Referring Provider Internal Medicine; Visit Provider Internal Medicine Gastroenterology | DX: D50.9 Iron deficiency anemia, unspecified (principal); R14.0 Abdominal distension (gaseous); R63.4 Abnormal weight loss; R10.12 Left upper quadrant pain; K21.9 Gastro-esophageal reflux disease without esophagitis; E11.9 Type 2 diabetes mellitus without complications; I10 Essential (primary) hypertension; I73.9 Peripheral vascular disease, unspecified; E78.00 Pure hypercholesterolemia, unspecified; Z86.010 Personal history of colon polyps | CPT/HCPCS: 99212 ==

== ENCOUNTER 2022-05-18 10:04 | Outpatient (REF) | payer OTHER, SELFPAY ==
[2022-05-18 10:22] LABS: MANUAL DIFF FLAG NO
[2022-05-18 11:07] LABS: Basophils Absolute Auto 0.1 X10*3/uL (0.0-0.2); Basophils Percent Auto 0.6 % (0-2); Eosinophils Absolute Auto 0.1 X10*3/uL (0.0-0.4); Eosinophils Percent Auto 1.3 % (0-4); Hematocrit 33.7 % (42.0-52.0); Hemoglobin 10.9 g/dl (14.0-18.0); Imm Gran Abs Auto 0.03 X10*3/uL (0.00-0.03); Imm Gran Pct Auto 0.3 % (0.0-0.4); Lymphocytes Absolute Auto 1.6 X10*3/uL (1.2-4.9); Lymphocytes Percent Auto 17.6 % (20-40); Mean Corpuscular HGB Conc 32.3 g/dl (31.0-36.0); Mean Corpuscular Hemoglobin 27.4 pg (27.0-33.0); Mean Corpuscular Volume 84.7 fL (80.0-98.0); Mean Platelet Volume 9.9 fL (9.4-12.4); Monocytes Absolute Auto 0.6 X10*3/uL (0.1-1.2); Monocytes Percent Auto 6.7 % (2-11); Neutrophils Absolute Auto 6.8 x10*3/uL (2.0-8.3); Neutrophils Percent Auto 73.5 % (45-73); Platelet Count 305 X10*3/uL (160-400); Red Blood Count 3.98 X10*6/uL (4.60-5.80); Red Cell Distribution Width 13.3 % (11.0-16.0); White Blood Count 9.3 X10*3/uL (4.8-10.8)
[2022-05-18 12:10] LABS: Alanine Aminotransferase 11 U/L (0-40); Albumin Level 4.3 g/dL (3.5-5.0); Alkaline Phosphatase 75 U/L (39-117); Anion Gap 14 (12-20); Aspartate Amino Transferase 12 U/L (5-37); Bilirubin Total 0.2 mg/dL (0.0-1.0); Blood Urea Nitrogen 21 mg/dL (9-16); C Reactive Protein 0.97 mg/dL (< or = 0.50); Calcium 9.7 mg/dL (8.4-10.2); Carbon Dioxide 30 mmol/L (22-29); Chloride 102 mmol/L (96-108); Estimated Glomerular Filt Rate 58; Glucose Random 118 mg/dL (60-115); Iron 62 mcg/dL (45-160); Percent Iron Saturation 29 % (15-50); Potassium 4.4 mmol/L (3.3-5.1); Sodium 142 mmol/L (135-145); Total Iron Binding Capacity 213 mcg/dL (228-428); Total Protein 7.5 g/dL (6.5-8.0); Unsaturated Iron Binding 151 ug/dL
[2022-05-18 12:17] LABS: Ferritin 144 ng/mL (20-250); TSH reflex Free T4 1.07 uIU/mL (0.32-4.0)
== END 2022-05-18 10:05 | disposition home or self-care (01) ==
LOC: HO.LAB 10:04
PROVIDERS: PCP Internal Medicine; Visit Provider Internal Medicine Gastroenterology
DX: D50.9 Iron deficiency anemia, unspecified (principal); R14.0 Abdominal distension (gaseous)
CPT/HCPCS: 36415; 80053; 82728; 83540; 84443; 85025; 86140

== ENCOUNTER → 2022-06-06 08:12 | Outpatient (BNVA) | payer OTHER, SELFPAY | PROVIDERS: PCP Internal Medicine; Visit Provider Orthopaedic Surgery | DX: M25.641 Stiffness of right hand, not elsewhere classified (principal); M25.642 Stiffness of left hand, not elsewhere classified; G56.02 Carpal tunnel syndrome, left upper limb | CPT/HCPCS: 99212 ==

== ENCOUNTER 2022-07-09 10:00 | Outpatient (RCR) | payer OTHER, SELFPAY ==
--- NOTE | 2022-06-18 14:36 | MHC.OT.EP ---
[address] [phone] Occupational Therapy Plan of Care Date of Evaluation: 06/18/22 Diagnosis: STIFFNESS B/L HANDS Pain Location: B/L HANDS, PIPj; L > R 5-6/10 AT REST 9/10 WITH USE Pain Score: 5-9/10 Pain Scale Used: Numeric (0 - 10) Aggravating Factors: COLD WEATHER, HIT/BUMP HANDS ON VARIOUS SURFACES Alleviating Factors: TYLENOL (MINIMAL BENEFITS), ARTHRITIS GLOVES Assessment: MR MANDY BLACKMAN WAS REFERRED FOR B/L HAND STIFFNESS. HE HAD B/L TRIGGER FINGER RELEASES DONE IN THE SUMMER OF 2021. HE IS UNABLE TO MAKE A CLOSED FIST AND C/O PAIN IN PIPj, MOST SIGNIFICANTLY IN MFs. HE IS UNABLE TO STRAIGHTEN HIS FINGERS OR LAY FLAT ON A TABLETOP. A 53% LIMITATION IS REPORTED PER THE QUICK DASH ASSESSMENT. ONGOING OT SERVICES ARE WARRANTED TO INCREASE FUNCTIONAL ABILITIES OF B/L HANDS AND IMPROVE QOL. Frequency and Duration: The patient will be seen 2X/WEEK FOR 4 WEEKS Short Term Goals: IND HEP COMPLETE ADL CLOSURE BOARD WITH MIN DIFFICULTIES IND USE OF HEAT MODALITIES, CONSIDER HOME PARAFFIN UNIT REPORT <4/10 PAIN AT REST IND EDEMA MANAGEMENT STRATEGIES Gliding Pilot Instructor Goals: TRIAL USE OF AE/AT DURING ADLs AND IADLs INCREASE R GRASP 30 POUNDS, L GRASP 25 POUNDS REPORT <5/10 PAIN WITH LIGHT IADLs IMPROVE DEXTERITY TO MINIMALLY FUNCTIONAL IN R HAND, PER FUNCTIONAL DEXTERITY TEST QUICK DASH <35% IND SCAR MOBILIZATION Treatment Plan: Therapeutic Exercise Therapeutic Activity Home Exercise Program Splinting Neuro Re-ed Patient Education Desensitization/Sensory Re-ed Edema Control ADL Training Ultrasound NMES Iontophoresis Paraffin Fluidotherapy MHP Joint Mobilization Soft Tissue Mobilization Kinesiotaping Other (see comments) Electronically Signed By: POLA KRAUS, OTR/L Please Sign and return to therapist. Thank you once again for your referral.
--- NOTE | 2022-08-03 08:55 | MHC.OT.DC ---
[address] [phone] F: [phone] Occupational Therapy Discharge Note Patient Name: Maxwell Sanchez Robin Provider: Lauryn Wild Diagnosis: STIFFNESS B/L HANDS Date of Evaluation: 06/18/22 Date of Discharge: 08/03/22 Treatments to Date: 6 Cancellations to Date: 0 No Shows to Date: 3 Discharge Status: Patient Elected to Stop Visit Non-compliance Discharge Summary: Pt CONTINUED TO C/O PAIN IN HIS DIGITS. SOME RELIEF FELT WITH THER EX AND USE OF PARAFFIN WAX. Pt CONT TO NEED PRACTICE WITH HEP, [facility]. VOLAR GUTTER SPLINT FABRICATED FOR D3 EXTENSION, NIGHT USE. OT DISCONTINUED Pt ELECTED TO STOP AND VISIT NON-COMPLIANCE. D/C OT. Electronically Signed By: JUNITO GAMING/Farhan Reviewed/agree with student documentation: N/A Therapist: Please Sign and return to therapist, thank you for your referral.
== END 2022-08-03 08:55 | disposition home or self-care (01) ==
LOC: HO.OT 10:00
PROVIDERS: PCP Internal Medicine; Visit Provider Orthopaedic Surgery
DX: M25.641 Stiffness of right hand, not elsewhere classified (principal); M25.642 Stiffness of left hand, not elsewhere classified
CPT/HCPCS: 97018; 97035; 97110; 97140; 97166

== ENCOUNTER 2022-07-28 08:00 | Outpatient (REF) | payer OTHER, SELFPAY ==
[2022-07-31 15:26] LABS: OBS1 NEGATIVE (NEGATIVE)
[2022-07-31 15:27] LABS: OBS Int Ctl Valid YES; OBS2 NEGATIVE (NEGATIVE); OBS3 NEGATIVE (NEGATIVE)
== END 2022-07-28 08:01 | disposition home or self-care (01) ==
LOC: HO.LNP 08:00
PROVIDERS: Visit Provider Internal Medicine Gastroenterology
DX: D50.9 Iron deficiency anemia, unspecified (principal)
CPT/HCPCS: 82270

== ENCOUNTER → 2022-09-04 09:43 | Outpatient (BNVA) | payer OTHER, SELFPAY | PROVIDERS: PCP Internal Medicine; Visit Provider Internal Medicine Gastroenterology | DX: K21.9 Gastro-esophageal reflux disease without esophagitis (principal); R14.0 Abdominal distension (gaseous); D64.9 Anemia, unspecified; D50.9 Iron deficiency anemia, unspecified; R10.12 Left upper quadrant pain; R63.4 Abnormal weight loss; E11.9 Type 2 diabetes mellitus without complications; E78.00 Pure hypercholesterolemia, unspecified; Z86.010 Personal history of colon polyps; Z79.52 Long term (current) use of systemic steroids; Z79.4 Long term (current) use of insulin; Z79.899 Other long term (current) drug therapy | CPT/HCPCS: 99212 ==